=== PATIENT | male | born 1975 | race Caucasian/White ===

== ENCOUNTER → 2019-04-24 12:33 | Outpatient (CLI) | payer OTHER, MEDICAID, SELFPAY | PROVIDERS: PCP Physician Assistant; Visit Provider Physician Assistant | DX: J02.9 Acute pharyngitis, unspecified (principal) | CPT/HCPCS: 87070 ==

== ENCOUNTER 2021-01-19 12:58 | Emergency (ER) | payer OTHER, MEDICAID, SELFPAY ==
[2021-01-19 13:00] VITALS: BP 138/87; PULSE 85; RESP 15; TEMP 36.8; O2SAT 100; BMI 26.3
[2021-01-19 13:21] LABS: Add Manual Diff / Slide Review NO; Basophils Absolute Auto 100 /uL (0-100); Eosinophils Absolute Auto 100 /uL (0-450); Eosinophils Percent Auto 1.3 % (2-4); Hemoglobin 14.7 g/dL (13.5-17.5); Lymphocytes Absolute Auto 1800 /uL (1100-4500); Lymphocytes Percent Auto 23.9 % (25-40); Mean Corpuscular HGB Conc 33.5 % (30-36); Mean Corpuscular Hemoglobin 32.5 PG (26-34); Mean Corpuscular Volume 96.8 fL (80-100); Monocytes Absolute Auto 700 /uL (0-900); Monocytes Percent Auto 10.1 % (3-14); Neutrophils Absolute Auto 4700 /uL (1500-7000); Neutrophils Percent Auto 63.7 % (50-75); Platelet Count 233 X10^3/uL (150-400); Red Blood Cell Count 4.54 X10^6/uL (4.5-5.9); Red Cell Distribution Width 13.2 % (11.6-14.8); White Blood Cell Count 7.4 X10^3/uL (4.5-11.0)
--- NOTE | 2021-01-19 13:22 | ED_ITS ---
HPI - Extremity Problem <Yoanna Gonsalez PA-C - Last Filed: 01/19/21 20:24> General Chief complaint: Extremity Problem,Nontraumatic Stated complaint: feeling funnyjitters,numbness in wrists/forearms Time Seen by Provider: 01/19/21 13:10 Source: patient Mode of arrival: Ambulatory Limitations: no limitations History of Present Illness HPI Narrative: This is a 45-year-old male who works as a [employer] with history of palpitations, abdominal pain, GERD who presents to the emergency department complaining of feeling jittery and off since this morning when he woke up around 6:00 a.m. he states that he just feels funny in his abdomen and chest and shoulder area he has a pins and needles tingly sensation in his wrists on both sides equally, he feels a little like his heart might be beating quickly, and states he just feels ?uncomfortable?--he also notes that he feels like ?I can not get warm?. He states that he drinks most days (at least every other day) in the past week he has been drinking ?more than usual about 4 shots a day he notes that last night he drank more than this because he had family around. He endorses feeling the tingly sensation in his wrist previously at times but has always assumed it was related to ?swinging a hammer?. He also endorses chronic anxiety issues and when asked if he has been under increased stress he says ?always?. He states earlier today he felt a little bit of chest pressure or discomfort in the center of his chest and so he sat down and it resolved within a minute or so. He notes that this morning when he tried to have a bowel mo vement he said it was difficult to do so although this was normal yesterday for him. He endorses chronic stomach issues and has been seen for this he states he takes medicine for ?acid? and this has been ongoing problem for him for the past year it has not been worse today or recently. He denies any shortness of breath, vomiting, fever, diarrhea, abdominal pain, flank pain, current chest pain, one-sided weakness, speech change, or any other symptoms. He states he was in his normal state of health yesterday. MD Complaint: other (Tingling wrists) Onset (ago): hour(s) (7) Pain Consistency: constant and other (Not painful just tingly) Location: other (Equal bilateral) Quality: other (Tingling) Radiation: none Relieving factors: nothing Exacerbating factors: nothing Associated symptoms: other (Feels jittery, anxious, had breif chest pain, feels chilled) Related Data Home Medications Medication Instructions Recorded Confirmed [PROBIOTIC] PO QDAY #0 11/27/17 lansoprazole [Prevacid] 15 mg PO QDAY #0 11/27/17 Previous Rx's Medication Instructions Recorded ondansetron [Zofran ODT] 4 mg SUBLINGUAL Q6HP PRN #10 odt 11/27/17 prednisone 40 mg PO QDAY #10 tab 11/27/17 hydroxyzine HCl 25 mg PO QID PRN #60 tab 01/19/21 Allergies Allergy/AdvReac Type Severity Reaction Status Date / Time No Known Drug Allergies Allergy Verified 01/19/21 13:04 Review of Systems <Yoanna Gonsalez PA-C - Last Filed: 01/19/21 20:24> Review of Systems Narrative: GENERAL: Endorses feeling chilled, denies fatigue, malaise, fever, sweats, endorses clammy palms. HEENT: Denies sinus pain, ear pain, sore throat, difficulty swallowing, dizziness. RESPIRATORY: Denies dyspnea, cough, wheezing, hemoptysis, sputum. CARDIOVASCULAR: Endorses brief episode of chest pain this morning, feels like he is having palpitations, denies orthopnea, edema, GASTROINTESTINAL: Denies nausea, vomiting, abdominal pain, diarrhea, felt a little constipated this morning, denies melena. : Denies dysuria, frequency, incontinence, hematuria, urinary retention. MUSCULOSKELETAL: denies weakness, joint pain, or bony pain, endorses tingling sensation of his wrists and proximal hand on the pinky side bilaterally SKIN: Denies rash, skin lesions, or other NEUROLOGIC: Denies weakness, headache, numbness, change in speech, confusion, seizures, incoordination. PSYCHIATRIC: No concerning psychosocial issues. 12 point review of systems is negative except for those stated above ROS Unobtainable: All systems reviewed & are unremarkable except as noted in HPI and below Patient History <Yoanna Gonsalez PA-C - Last Filed: 01/19/21 20:24> Social History Smoking Status: Current every day smoker Smoking Status: Current every day smoker alcohol intake frequency: 3 or more drinks per day Substance Use Type: marijuana Exam <Yoanna Gonsalez PA-C - Last Filed: 01/19/21 20:24> Narrative Exam Narrative: GENERAL: 45 year old patient appears stated age. Well-nourished, well-developed patient, in mild distress, anxious appearing, consistently moving his feet and legs slightly. HEAD: Atraumatic. Normocephalic. EYES: Pupils equal round and reactive 3mm. Extraocular motions intact. No scleral icterus. No injection or drainage. ENT: Nose without bleeding, purulent drainage. Throat without erythema, tonsillar hypertrophy or exudate. Airway patent. Uvula midline. NECK: Trachea midline. Non tender CARDIOVASCULAR: Regular rate and rhythm without murmurs, gallops, or rubs. RESPIRATORY: Clear to auscultation. Breath sounds equal bilaterally. No wheezes, rales, or rhonchi. GASTROINTESTINAL: Abdomen soft, non-tender, nondistended. EXTREMITIES: No edema or joint tenderness. Range of motion and strength intact bilaterally equal 5/5. BACK: Nontender without deformity or crepitance. No flank tenderness. NEURO: AOx3. Cranial nerves II-XII intact. Sensation intact. Negative arm drift, leg drift SKIN: No rash or erythema of visible areas Initial Vital Signs Initial Vital Signs: Vital Signs Temperature 98.3 F 01/19/21 13:00 Pulse Rate 85 01/19/21 13:00 Respiratory Rate 15 01/19/21 13:00 Blood Pressure 138/87 01/19/21 13:00 Pulse Oximetry 100 01/19/21 13:00 <Gaston Ramsey DO - Last Filed: 01/23/21 18:02> Initial Vital Signs Initial Vital Signs: Vital Signs Temperature 98.3 F 01/19/21 13:00 Pulse Rate 85 01/19/21 13:00 Respiratory Rate 15 01/19/21 13:00 Blood Pressure 138/87 01/19/21 13:00 Pulse Oximetry 100 01/19/21 13:00 Scores <Yoanna Gonsalez PA-C - Last Filed: 03/11/21 20:24> GCS Jeffrey coma scale eye opening: Spontaneous Amber coma scale verbal response: Orientated Jeffrey coma scale motor response: Obey commands Jeffrey coma scale total score: 15 NIH Stroke Scale Level of Conciousness: Alert, keenly responsive Ask month/age: Answers both questions correctly. Open/close eyes, close hand: Performs both tasks correctly Best gaze horizontal: Normal Visual archibald: No visual loss Facial palsy: Normal symetrical movement Left arm drift: No drift for full 10 sec Right arm drift: No drift for full 10 sec Left leg drift: No drift for full 5 sec Right leg drift: No drift for full 5 sec Limb ataxia: Absent Sensory on face/arms/legs: Normal, no sensory loss Best language: No aphasia, normal Dysarthria: Normal Extinction or inattention: No abnormality Total NIH Stroke scale score: 0 Course <Yoanna Gonsalez PA-C - Last Filed: 01/19/21 20:24> Course Course Narrative: Slightly uncomfortable appearing 45-year-old with unremarkable vitals. EKG is obtained and is unremarkable. I have some concern for possible withdrawal from alcohol although his reported recent history would not support this. I think anxiety is also likely in this patient. Also checking cardiac enzymes and TSH. 13:38 Patient did now advise RN that he has previously had withdrawals from alcohol and that he has previously had to have treatment for this. I have asked that we complete a CIWA score on him. 13:41 CIWA was 5. Orders Ordered: Discontinued Medications Sodium Chloride (Normal Saline 0.9%) 1,000 mls @ 1,000 mls/hr IV BOLUS ONE Stop: 01/19/21 14:09 Last Infusion: 01/19/21 14:50 Dose: 0 mls/hr Documented by: Admin: 01/19/21 13:44 Dose: 1,000 mls/hr Documented by: JOHNSON Lorazepam (Lorazepam 2 Mg/Ml Inj) 1 mg IV NOW ONE Stop: 01/19/21 14:58 Last Admin: 01/19/21 15:07 Dose: 1 mg Documented by: AL Ondansetron HCl (Ondansetron 4 Mg/2 Ml Inj) 4 mg IV NOW ONE Stop: 01/19/21 13:11 Last Admin: 01/19/21 13:43 Dose: 4 mg Documented by: JOHNSON Thiamine HCl (Thiamine 200 Mg/2 Ml Vial) 100 mg IV NOW ONE Stop: 01/19/21 14:56 Last Admin: 01/19/21 15:07 Dose: 100 mg Documented by: AL Vital Signs Vital signs: Vital Signs - 8 hr 01/19/21 13:00 01/19/21 16:06 Temperature 98.3 F Pulse Rate 85 85 Respiratory Rate 15 14 Blood Pressure 138/87 137/77 Pulse Oximetry 100 98 <Gaston Ramsey DO - Last Filed: 01/23/21 18:02> Orders Ordered: Discontinued Medications Sodium Chloride (Normal Saline 0.9%) 1,000 mls @ 1,000 mls/hr IV BOLUS ONE Stop: 01/19/21 14:09 Last Infusion: 01/19/21 14:50 Dose: 0 mls/hr Documented by: Admin: 01/19/21 13:44 Dose: 1,000 mls/hr Documented by: JOHNSON Lorazepam (Lorazepam 2 Mg/Ml Inj) 1 mg IV NOW ONE Stop: 01/19/21 14:58 Last Admin: 01/19/21 15:07 Dose: 1 mg Documented by: AL Ondansetron HCl (Ondansetron 4 Mg/2 Ml Inj) 4 mg IV NOW ONE Stop: 01/19/21 13:11 Last Admin: 01/19/21 13:43 Dose: 4 mg Documented by: JOHNSON Thiamine HCl (Thiamine 200 Mg/2 Ml Vial) 100 mg IV NOW ONE Stop: 01/19/21 14:56 Last Admin: 01/19/21 15:07 Dose: 100 mg Documented by: AL Vital Signs Vital signs: Vital Signs - 8 hr 01/19/21 13:00 01/19/21 16:06 Temperature 98.3 F Pulse Rate 85 85 Respiratory Rate 15 14 Blood Pressure 138/87 137/77 Pulse Oximetry 100 98 MDM - Extremity (Nontraumatic) <Yoanna Gonsalez PA-C - Last Filed: 01/19/21 20:24> Differential Diagnosis Differential diagnosis: Likely other (Alcohol withdrawal, anxiety, vitamin deficiency, carpal tunnel) Medical Records Attestation: I reviewed the patient's medical records. Lab Data Attestation: I reviewed the patient's lab results. Result diagrams: 01/19/21 13:07 01/19/21 13:07 Labs: Lab Results 01/19/21 01/19/21 01/19/21 Range/Units 13:07 13:07 13:07 WBC 7.4 (4.5-11.0) X10^3/uL RBC 4.54 (4.5-5.9) X10^6/uL Hgb 14.7 (13.5-17.5) g/dL Hct 44.0 (41-53) % MCV 96.8 (80-100) fL MCH 32.5 (26-34) PG MCHC 33.5 (30-36) % RDW 13.2 (11.6-14.8) % Plt Count 233 (150-400) X10^3/uL Neut % (Auto) 63.7 (50-75) % Lymph % (Auto) 23.9 L (25-40) % [place] % (Auto) 10.1 (3-14) % Eos % (Auto) 1.3 L (2-4) % Baso % (Auto) 1.0 (0-2) % Neut # (Auto) 4700 (5041-5028) /uL Lymph # (Auto) 1800 (0262-5762) /uL [place] # (Auto) 700 (0-900) /uL Eos # (Auto) 100 (0-450) /uL Baso # (Auto) 100 (0-100) /uL Sodium 138 (137-145) mmol/L Potassium 4.0 (3.4-5.1) mmol/L Chloride 105 (98-107) mmol/L Carbon Dioxide 26 (22-32) mmol/L BUN 15 (9-20) mg/dL Creatinine 0.92 (0.66-1.25) mg/dL Estimated GFR > 60.0 (>60) mL/min BUN/Creatinine Ratio 16.3 (6-22) Glucose 112 H (70-100) mg/dL Calcium 9.5 (8.4-10.2) mg/dL Magnesium (1.6-2.3) mg/dL Total Bilirubin 1.1 (0.2-1.3) mg/dL AST 40 (17-59) IU/L ALT 44 (<50) IU/L Alkaline Phosphatase 94 (38-126) U/L Total Creatine Kinase 372 H (55-170) U/L CK-MB (CK-2) 5.45 H (<2.37) ng/mL CK-MB (CK-2) Rel Index 1.5 (1.5-5.0) % Troponin I < 0.012 (0.01-0.034) ng/mL Total Protein 8.2 (6.3-8.2) g/dL Albumin 4.7 (3.5-5.0) g/dL Globulin 3.5 (1.7-4.1) g/dL Albumin/Globulin Ratio 1.3 (1.0-2.8) TSH 0.926 (0.47-4.68) uIU/mL Ethyl Alcohol ( - 10) mg/dL SARS-CoV-2 (PCR) (Negative) 01/19/21 01/19/21 01/19/21 Range/Units 13:07 13:07 13:42 WBC (4.5-11.0) X10^3/uL RBC (4.5-5.9) X10^6/uL Hgb (13.5-17.5) g/dL Hct (41-53) % MCV (80-100) fL MCH (26-34) PG MCHC (30-36) % RDW (11.6-14.8) % Plt Count (150-400) X10^3/uL Neut % (Auto) (50-75) % Lymph % (Auto) (25-40) % [place] % (Auto) (3-14) % Eos % (Auto) (2-4) % Baso % (Auto) (0-2) % Neut # (Auto) (6750-6661) /uL Lymph # (Auto) (2721-2318) /uL [place] # (Auto) (0-900) /uL Eos # (Auto) (0-450) /uL Baso # (Auto) (0-100) /uL Sodium (137-145) mmol/L Potassium (3.4-5.1) mmol/L Chloride (98-107) mmol/L Carbon Dioxide (22-32) mmol/L BUN (9-20) mg/dL Creatinine (0.66-1.25) mg/dL Estimated GFR (>60) mL/min BUN/Creatinine Ratio (6-22) Glucose (70-100) mg/dL Calcium (8.4-10.2) mg/dL Magnesium 1.9 (1.6-2.3) mg/dL Total Bilirubin (0.2-1.3) mg/dL AST (17-59) IU/L ALT (<50) IU/L Alkaline Phosphatase (38-126) U/L Total Creatine Kinase (55-170) U/L CK-MB (CK-2) (<2.37) ng/mL CK-MB (CK-2) Rel Index (1.5-5.0) % Troponin I (0.01-0.034) ng/mL Total Protein (6.3-8.2) g/dL Albumin (3.5-5.0) g/dL Globulin (1.7-4.1) g/dL Albumin/Globulin Ratio (1.0-2.8) TSH (0.47-4.68) uIU/mL Ethyl Alcohol < 10 ( - 10) mg/dL SARS-CoV-2 (PCR) Negative (Negative) ECG Data Attestation EKG: I personally reviewed and interpreted this ECG as follows: Interpretation: NSR rate 75 NM 156 QRS 102 QT 384 P axis 68 R axis 30 T [place] 54 Inverted T in V1 otherwse unremarkable MDM Narrative Medical decision making narrative: Anxious appearing 45-year-old presents with concern for feeling jittery with a weird sensation in his chest and abdomen and having and numbness of both of his wrists. He endorses historically having the same wrist feeling before multiple times. He also endorses drinking more than usual the past week particularly last night. He has an unremarkable neuro exam, EKG. Labs returned unremarkable including TSH and troponin. Troponin was not rechecked given the duration of his symptoms is greater than 6 hours and he had only 1 brief episode of chest discomfort early this morning. Etiology of his tingling sensation in his bilateral wrists is unclear. I have low suspicion for TIA or CVA. He was feeling better after he received fluids and Zofran and Ativan, he was also given thiamine. And he was discharged with hydroxyzine for anxiety as he did endorse chronic issues with anxiety and not currently taking any medications for this. His symptoms are also consistent with anxiety. He was also advised to follow-up with his primary care provider and consider discussing other options for anxiety medicine as well as evaluating for possible vitamin deficiency. Given CIWA of 5 low suspicion for acute alcohol withdrawal. Return precautions provided, all questions answered, follow-up plan discussed <Gaston Ramsey DO - Last Filed: 01/23/21 18:02> Lab Data Labs: Lab Results 01/19/21 01/19/21 01/19/21 Range/Units 13:07 13:07 13:07 WBC 7.4 (4.5-11.0) X10^3/uL RBC 4.54 (4.5-5.9) X10^6/uL Hgb 14.7 (13.5-17.5) g/dL Hct 44.0 (41-53) % MCV 96.8 (80-100) fL MCH 32.5 (26-34) PG MCHC 33.5 (30-36) % RDW 13.2 (11.6-14.8) % Plt Count 233 (150-400) X10^3/uL Neut % (Auto) 63.7 (50-75) % Lymph % (Auto) 23.9 L (25-40) % [place] % (Auto) 10.1 (3-14) % Eos % (Auto) 1.3 L (2-4) % Baso % (Auto) 1.0 (0-2) % Neut # (Auto) 4700 (8630-4631) /uL Lymph # (Auto) 1800 (6964-6890) /uL [place] # (Auto) 700 (0-900) /uL Eos # (Auto) 100 (0-450) /uL Baso # (Auto) 100 (0-100) /uL Sodium 138 (137-145) mmol/L Potassium 4.0 (3.4-5.1) mmol/L Chloride 105 (98-107) mmol/L Carbon Dioxide 26 (22-32) mmol/L BUN 15 (9-20) mg/dL Creatinine 0.92 (0.66-1.25) mg/dL Estimated GFR > 60.0 (>60) mL/min BUN/Creatinine Ratio 16.3 (6-22) Glucose 112 H (70-100) mg/dL Calcium 9.5 (8.4-10.2) mg/dL Magnesium (1.6-2.3) mg/dL Total Bilirubin 1.1 (0.2-1.3) mg/dL AST 40 (17-59) IU/L ALT 44 (<50) IU/L Alkaline Phosphatase 94 (38-126) U/L Total Creatine Kinase 372 H (55-170) U/L CK-MB (CK-2) 5.45 H (<2.37) ng/mL CK-MB (CK-2) Rel Index 1.5 (1.5-5.0) % Troponin I < 0.012 (0.01-0.034) ng/mL Total Protein 8.2 (6.3-8.2) g/dL Albumin 4.7 (3.5-5.0) g/dL Globulin 3.5 (1.7-4.1) g/dL Albumin/Globulin Ratio 1.3 (1.0-2.8) TSH 0.926 (0.47-4.68) uIU/mL Ethyl Alcohol ( - 10) mg/dL SARS-CoV-2 (PCR) (Negative) 01/19/21 01/19/21 01/19/21 Range/Units 13:07 13:07 13:42 WBC (4.5-11.0) X10^3/uL RBC (4.5-5.9) X10^6/uL Hgb (13.5-17.5) g/dL Hct (41-53) % MCV (80-100) fL MCH (26-34) PG MCHC (30-36) % RDW (11.6-14.8) % Plt Count (150-400) X10^3/uL Neut % (Auto) (50-75) % Lymph % (Auto) (25-40) % [place] % (Auto) (3-14) % Eos % (Auto) (2-4) % Baso % (Auto) (0-2) % Neut # (Auto) (8049-7259) /uL Lymph # (Auto) (9412-8731) /uL [place] # (Auto) (0-900) /uL Eos # (Auto) (0-450) /uL Baso # (Auto) (0-100) /uL Sodium (137-145) mmol/L Potassium (3.4-5.1) mmol/L Chloride (98-107) mmol/L Carbon Dioxide (22-32) mmol/L BUN (9-20) mg/dL Creatinine (0.66-1.25) mg/dL Estimated GFR (>60) mL/min BUN/Creatinine Ratio (6-22) Glucose (70-100) mg/dL Calcium (8.4-10.2) mg/dL Magnesium 1.9 (1.6-2.3) mg/dL Total Bilirubin (0.2-1.3) mg/dL AST (17-59) IU/L ALT (<50) IU/L Alkaline Phosphatase (38-126) U/L Total Creatine Kinase (55-170) U/L CK-MB (CK-2) (<2.37) ng/mL CK-MB (CK-2) Rel Index (1.5-5.0) % Troponin I (0.01-0.034) ng/mL Total Protein (6.3-8.2) g/dL Albumin (3.5-5.0) g/dL Globulin (1.7-4.1) g/dL Albumin/Globulin Ratio (1.0-2.8) TSH (0.47-4.68) uIU/mL Ethyl Alcohol < 10 ( - 10) mg/dL SARS-CoV-2 (PCR) Negative (Negative) Discharge Plan Departure Patient Disposition: Home Clinical Impression: Tingling of both upper extremities, Anxiety Activity Restrictions/Additional Instructions: Thank you for letting us be part of your care today in the emergency department. There are number of different things that could potentially cause the symptoms that you had today. We did evaluate you with labs and EKG, these were looking good today. Occasionally numbness and tingling in the extremities can be caused by vitamin deficiencies we did give you some vitamin B1 (thiamine) today. 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 If your having an anxiety attack it can cause a tingling sensation in your extremities due to changes in your breathing pattern. We did check on your cardiac labs today and this was looking okay. Your electrolytes also looks good. I do not have a clear cause for your symptoms. I do not think it is likely that you have carpal tunnel although the tingling may be related to chronic use of your hands in your job. You could consider taking it B vitamin supplements if you like or when you have your follow-up appointment with primary care talk to them about getting tested for specific vitamin deficiencies if you would like. I am going to prescribe some anti anxiety medic ine for you which you should not take before driving or operating any equipment. I would also talk to her primary care provider about anxiety. There is no evidence of an emergent or life threatening illness at this time, but follow up with your doctor in 1-2 days is recommended nonetheless to continue to rule out serious underlying causes of your symptoms. Please call the office for an appointment. Please return to the Emergency Department for any worsening or persistent symptoms. Please take medications as directed. Prescriptions: New hydroxyzine HCl 25 mg tablet 25 mg PO QID PRN (Reason: anxiety) Qty: 60 RF: 0 No Action lansoprazole [Prevacid] 15 MG capsule,delayed release(DR/EC) 15 mg PO QDAY Qty: 0 RF: 0 [PROBIOTIC] PO QDAY Qty: 0 RF: 0 prednisone 20 MG tablet 40 mg PO QDAY Qty: 10 RF: 0 ondansetron [Zofran ODT] 4 MG tablet,disintegrating 4 mg Sublingual Q6HP PRNQty: 10 RF: 0 Referrals: Jeff Weber ND [Primary Care Provider] - Stand Alone Forms: Work Release Note <Gaston Ramsey DO - Last Filed: 01/23/21 18:02> Cosign ED Attending Gemaature Attestation: I was immediately available in the department for consultation. This documentation has been reviewed and I agree with assessment and plan. Supervised by Gaston Ramsey DO
[2021-01-19 13:37] LABS: Alanine Aminotransferase 44 IU/L (<50); Albumin 4.7 g/dL (3.5-5.0); Albumin Globulin Ratio 1.3 (1.0-2.8); Alkaline Phosphatase 94 U/L (38-126); Aspartate Aminotransferase 40 IU/L (17-59); BUN Creatinine Ratio 16.3 (6-22); Bilirubin Total 1.1 mg/dL (0.2-1.3); Blood Urea Nitrogen 15 mg/dL (9-20); Calcium 9.5 mg/dL (8.4-10.2); Carbon Dioxide 26 mmol/L (22-32); Chloride 105 mmol/L (98-107); Creatine Kinase 372 U/L (55-170); Estimated Glomerular Filt Rate > 60.0 mL/min (>60); Globulin 3.5 g/dL (1.7-4.1); Glucose 112 mg/dL (70-100); HEMOLYSIS < 15 (0-50); Sodium 138 mmol/L (137-145); Total Protein 8.2 g/dL (6.3-8.2)
[2021-01-19 13:42] LABS: Ethanol (ETOH) < 10 mg/dL
[2021-01-19] MEDS: ONDANSETRON 4 MG/2 ML INJ IV (13:43)
[2021-01-19] MEDS: SODIUM CHLORIDE 0.9% 1,000 ML 1000 ML IV (13:44)
[2021-01-19 13:49] LABS: Troponin I < 0.012 ng/mL (0.01-0.034)
[2021-01-19 13:58] LABS: Magnesium 1.9 mg/dL (1.6-2.3)
[2021-01-19 14:01] LABS: COVID19 -Nasal RAPID Negative (Negative)
--- NOTE | 2021-01-19 14:01 | PC.NURSE ---
patient states that he doesn't feel well. Numbness and tingling in his hands bilaterally. No other neurological deficits. complaints of stomach pain that has since resolved.
[2021-01-19 14:04] LABS: CKMB % Relative Index 1.5 % (1.5-5.0); Creatine Kinase MB 5.45 ng/mL (<2.37)
[2021-01-19 14:30] LABS: Thyroid Stimulating Hormone 0.926 uIU/mL (0.47-4.68)
[2021-01-19] MEDS: THIAMINE 200 MG/2 ML VIAL 100 MG IV (15:07)
[2021-01-19] MEDS: LORazepam 2 MG/ML INJ 1 MG IV (15:07)
[2021-01-19 16:06] VITALS: BP 137/77; PULSE 85; RESP 14; O2SAT 98
== END 2021-01-19 16:09 | disposition home or self-care (01) ==
PROVIDERS: Emergency Provider Student in an Organized Health Care Education/Training Program; PCP Naprapath
DX: R20.2 Paresthesia of skin (principal); F41.9 Anxiety disorder, unspecified; Z20.822 Contact with and (suspected) exposure to COVID-19
CPT/HCPCS: 36415; 80053; 80320; 82550; 82553; 83735; 84443; 84484; 85025; 87635; 93005; 96361; 96374; 96375; 99282; 99284; C9803; J2060; J2405

== ENCOUNTER 2021-09-04 12:32 | Emergency (ER) | payer OTHER, MEDICAID, SELFPAY ==
[2021-09-04 13:19] VITALS: BP 132/72; PULSE 78; RESP 16; TEMP 36.6; O2SAT 99; BMI 25.4
--- NOTE | 2021-09-04 15:03 | PC.NURSE ---
Was called from the waiting room x 2 without answer
== END 2021-09-04 15:00 | disposition left against medical advice (07) ==
PROVIDERS: Emergency Provider Emergency Medicine
DX: R07.9 Chest pain, unspecified (principal)
CPT/HCPCS: 93005; 99282

== ENCOUNTER 2023-06-27 20:08 | Emergency (ER) | payer OTHER, MEDICAID, SELFPAY ==
[2023-06-27 20:30] VITALS: BP 128/79; PULSE 88; RESP 18; TEMP 37.1; O2SAT 97; BMI 26.3
[2023-06-27 21:08] LABS: COVID19 -Nasal RAPID Negative (Negative)
--- NOTE | 2023-06-27 22:31 | DI.RAD.S_ITS ---
PROCEDURE: XR CHEST 1V INDICATIONS: eval for PNA TECHNIQUE: One view of the chest was acquired. COMPARISON: [facility], CR, ABDOMEN ACUTE SERIES, 11/25/2017, 0:02. FINDINGS: Surgical changes and devices: None. Lungs and pleura: Lungs are clear. No pleural effusions or pneumothorax. Mediastinum: Mediastinal contours appear normal. Heart size is normal. Bones and chest wall: No suspicious bony lesions. Overlying soft tissues appear unremarkable. IMPRESSION: 1. No acute cardiopulmonary disease. Dictated by: Ananda Romano M.D. on 06/28/2023 at 0:05 Approved by: Ananda Romano M.D. on 06/28/2023 at 0:05
--- NOTE | 2023-06-27 22:31 | ED.GENADULT ---
HPI - General Adult General Chief complaint: Upper Respiratory Symptoms Stated complaint: night sweats, unable to sleep Time Seen by Provider: 06/27/23 22:10 Source: patient Mode of arrival: Ambulatory Limitations: no limitations History of Present Illness HPI narrative: Patient is a 48-year-old male who is here for evaluation of 3-4 days what he states his sweating at night. He does not think he is having a temperature but has not specifically checked it. He states the last time that this has happened was when he had COVID. He is not having any chest pain or shortness of breath or sinus congestion or abdominal pain or nausea vomiting or diarrhea. No skin rashes. No recent travel. He states he is not having the symptoms during the day. He also states he is had weight loss over the past couple weeks/months as well. Related Data Home Medications Medication Instructions Recorded Confirmed sildenafil PO 11/13/22 02/27/23 Previous Rx's Medication Instructions Recorded tadalafil 5 mg tablet (Cialis) 5 mg PO DAILY #90 tabs 11/13/22 Allergies Allergy/AdvReac Type Severity Reaction Status Date / Time No Known Drug Allergies Allergy Verified 02/27/23 10:19 Review of Systems Review of Systems ROS Unobtainable: All systems reviewed & are unremarkable except as noted in HPI and below Patient History Medical History Erectile dysfunction History of impotence Lower urinary tract symptoms (LUTS) Surgical History Hx of circumcision Family History Grandfather Cancer Hearing impairment Mother Diabetes mellitus Social History marital status: number of children: 1 Smoking Status: Former smoker alcohol intake: current caffeine: Yes Type(s) of exercise: independent ambulation and other frequency: daily Smoking Status: Former smoker alcohol intake frequency: 3 or more drinks per day Substance Use Type: marijuana Exam Initial Vital Signs Initial Vital Signs: Vital Signs Temperature 98.7 F 06/27/23 20:30 Pulse Rate 88 06/27/23 20:30 Respiratory Rate 18 06/27/23 20:30 Blood Pressure 128/79 06/27/23 20:30 Pulse Oximetry 97 06/27/23 20:30 Oxygen Delivery Method Room Air 06/27/23 20:30 Const General: cooperative, comfortable and No ill appearing HENPA Head: normal to inspection and normocephalic Resp Effort & Inspection: normal respiratory effort Auscultation: clear to auscultation bilaterally Cardio Rate: regular rate Rhythm: regular rhythm Skin General: no rashes or lesions noted Neuro General: patient alert, patient awake, patient oriented x3 and moves all extremities Speech: speech normal Extrem General: normal to inspection and capillary refill normal Course Orders Ordered: ED Orders 06/27/23 20:45 COVID19 -Nasal RAPID Stat 06/27/23 22:31 XR chest 1V Stat 06/27/23 22:55 Basic Metabolic Panel Stat Complete Blood Count AUTO DIFF Stat Vital Signs Vital signs: Vital Signs - 8 hr 06/27/23 20:30 Temperature 98.7 F Pulse Rate 88 Respiratory Rate 18 Blood Pressure 128/79 Pulse Oximetry 97 Oxygen Delivery Method Room Air Medical Decision Making Lab Data Lab results reviewed: Yes I reviewed the patient's lab results. 06/27/23 22:55 06/27/23 22:55 Labs: Lab Results 06/27/23 06/27/23 06/27/23 Range/Units 20:45 22:55 22:55 WBC 6.5 (4.5-11.0) X10^3/uL RBC 4.24 L (4.5-5.9) X10^6/uL Hgb 14.2 (13.5-17.5) g/dL Hct 40.4 L (41-53) % MCV 95.4 (80-100) fL MCH 33.4 (26-34) PG MCHC 35.0 (30-36) % RDW 13.1 (11.6-14.8) % Plt Count 210 (150-400) X10^3/uL Neut % (Auto) 57.8 (50-75) % Lymph % (Auto) 22.8 L (25-40) % Winn % (Auto) 12.6 (3-14) % Eos % (Auto) 4.8 H (2-4) % Baso % (Auto) 2.0 (0-2) % Neut # (Auto) 3800 (8384-3094) /uL Lymph # (Auto) 1500 (4920-2249) /uL Winn # (Auto) 800 (0-900) /uL Eos # (Auto) 300 (0-450) /uL Baso # (Auto) 100 (0-100) /uL Sodium 136 L (137-145) mmol/L Potassium 4.1 (3.4-5.1) mmol/L Chloride 104 (98-107) mmol/L Carbon Dioxide 25 (22-32) mmol/L BUN 12 (9-20) mg/dL Creatinine 0.91 (0.66-1.25) mg/dL Estimated GFR > 60 (>60) mL/min BUN/Creatinine Ratio 13.2 (6-22) Glucose 102 H (70-100) mg/dL Calcium 8.9 (8.4-10.2) mg/dL SARS-CoV-2 (PCR) Negative (Negative) Imaging Data Chest x-ray: Radiologist's Impression: PROCEDURE:? XR CHEST 1V ? INDICATIONS:? eval for PNA ? TECHNIQUE:? One view of the chest was acquired.? ? COMPARISON:? [facility], CR, ABDOMEN ACUTE SERIES, 11/25/2017, 0:02. ? FINDINGS:? ? Surgical changes and devices:? None.? ? Lungs and pleura:? Lungs are clear.? No pleural effusions or pneumothorax.? ? Mediastinum:? Mediastinal contours appear normal.? Heart size is normal.? ? Bones and chest wall:? No suspicious bony lesions.? Overlying soft tissues appear unremarkable.? ? IMPRESSION:? ? 1.? No acute cardiopulmonary disease. MDM Narrative Medical decision making narrative: Patient is nontoxic. Afebrile. Chest x-ray is unremarkable. Labs unremarkable. Patient has not had any recent travel. His COVID is negative. No indication for antibiotics. He is no other overt signs of any malignancies. Will have the patient actually take his temperature at night when he feels like he is having sweating to see if he is actually having fevers. He can take Tylenol to try to help regulate his body temperature. His sweating could very well be because of environmental issues as it has been hot in the local area recently. Will have him contact his primary doctor for follow-up. He was given return precautions. He expressed understanding and agreement. Discharge Plan Departure Patient Disposition: Home Clinical Impression: Night sweats Clinical Impression: (Ruled Out): Abdominal discomfort Activity Restrictions/Additional Instructions: I recommend that you take your temperature this evening if the symptoms reoccur. You can take Tylenol as needed like we discussed. Contact your primary doctor for a follow-up. Return to the emergency department for new symptoms. Prescriptions: No Action sildenafil PO tadalafil [Cialis] 5 mg tablet 5 mg PO DAILY Qty: 90 3RF Referrals: Elyse Alba ND [Primary Care Provider] - Stand Alone Forms: Patient Portal/API
[2023-06-27 23:10] LABS: Add Manual Diff / Slide Review NO; Basophils Absolute Auto 100 /uL (0-100); Eosinophils Absolute Auto 300 /uL (0-450); Eosinophils Percent Auto 4.8 % (2-4); Hematocrit 40.4 % (41-53); Hemoglobin 14.2 g/dL (13.5-17.5); Lymphocytes Absolute Auto 1500 /uL (1100-4500); Lymphocytes Percent Auto 22.8 % (25-40); Mean Corpuscular Hemoglobin 33.4 PG (26-34); Mean Corpuscular Volume 95.4 fL (80-100); Monocytes Absolute Auto 800 /uL (0-900); Monocytes Percent Auto 12.6 % (3-14); Neutrophils Absolute Auto 3800 /uL (1500-7000); Neutrophils Percent Auto 57.8 % (50-75); Platelet Count 210 X10^3/uL (150-400); Red Blood Cell Count 4.24 X10^6/uL (4.5-5.9); Red Cell Distribution Width 13.1 % (11.6-14.8); White Blood Cell Count 6.5 X10^3/uL (4.5-11.0)
[2023-06-27 23:23] LABS: BUN Creatinine Ratio 13.2 (6-22); Blood Urea Nitrogen 12 mg/dL (9-20); Calcium 8.9 mg/dL (8.4-10.2); Carbon Dioxide 25 mmol/L (22-32); Chloride 104 mmol/L (98-107); Estimated Glomerular Filt Rate > 60 mL/min (>60); Glucose 102 mg/dL (70-100); HEMOLYSIS < 15 (0-50); Potassium 4.1 mmol/L (3.4-5.1); Sodium 136 mmol/L (137-145)
== END 2023-06-28 00:43 | disposition home or self-care (01) ==
PROVIDERS: Emergency Provider Emergency Medicine; PCP Naturopath
DX: R61 Generalized hyperhidrosis (principal); R10.9 Unspecified abdominal pain; Z20.822 Contact with and (suspected) exposure to COVID-19
CPT/HCPCS: 36415; 71045; 80048; 85025; 87635; 99283; 99284; C9803

== ENCOUNTER 2024-05-07 03:46 | Emergency (ER) | payer OTHER, MEDICAID, SELFPAY ==
[2024-05-07] VITALS (9 sets, daily range): BP systolic 116–131; BP diastolic 72–88; PULSE 62–75; RESP 18; TEMP 36.8; O2SAT 96–98; BMI 28.2
--- NOTE | 2024-05-07 03:57 | ED.ABDPAIN ---
HPI - Abdominal Pain General Chief Complaint: Abdominal Pain Stated Complaint: abd pain Time Seen by Provider: 05/07/24 03:54 History of Present Illness HPI narrative: 48-year-old male with history of polysubstance abuse, last drink of alcohol fall 2022, history of remote methamphetamine use, prior abdominal pain evaluations, upper and lower endoscopy studies negative in the past, no gallbladder disease known, no stomach ulcers known, complains of upper abdominal pain for the last couple of days, similar to prior abdominal pain. Had small amount of bowel movement yesterday, did not change the abdominal pain, no black or red stools. No mucoid stools. No history of Crohn's disease or inflammatory bowel disease known. No abdominal pelvic surgeries. He denies trauma, injury, new activities. No change in diet. No new medications. He denies use of aspirin, ibuprofen, naproxen. He has not tried any treatment for this recent discomfort. No trial of antacids advised or taken empirically. He denies painful urination, frequency of urination, dark/red color of urine. He denies flank and back pain. Related Data Home Medications Medication Instructions Recorded Confirmed sildenafil PO 11/13/22 02/27/23 Previous Rx's Medication Instructions Recorded tadalafil 5 mg tablet (Cialis) 5 mg PO DAILY #90 tabs 11/13/22 omeprazole 20 mg capsule,delayed 20 mg PO DAILY upper abdominal 05/07/24 release pain 30 days #30 caps Allergies Allergy/AdvReac Type Severity Reaction Status Date / Time No Known Drug Allergies Allergy Verified 02/27/23 10:19 Review of Systems Review of Systems Narrative: As per HPI Patient History Medical History Erectile dysfunction History of impotence Lower urinary tract symptoms (LUTS) Surgical History Hx of circumcision Family History Grandfather Cancer Hearing impairment Mother Diabetes mellitus Social History marital status: number of children: 1 Smoking Status: Former smoker alcohol intake: current caffeine: Yes Type(s) of exercise: independent ambulation and other frequency: daily Smoking Status: Former smoker alcohol intake frequency: 3 or more drinks per day Substance Use Type: marijuana Exam Narrative Exam Narrative: GENERAL: Well-developed patient, in mild distress. HEAD: Atraumatic. Normocephalic. EYES: Pupils equal round and reactive. Extraocular motions intact. No scleral icterus. No injection or drainage. ENT: Nose without bleeding, purulent drainage. Throat without erythema, tonsillar hypertrophy or exudate. Airway patent. NECK: Trachea midline. Non tender CARDIOVASCULAR: Regular rate and rhythm without murmurs, gallops, or rubs. RESPIRATORY: Clear to auscultation. Breath sounds equal bilaterally. No wheezes, rales, or rhonchi. GASTROINTESTINAL: Abdomen soft, mild tenderness epigastrium, no right upper quadrant tenderness, no left upper quadrant tenderness, no lower abdominal quadrants area discomfort, no periumbilical tenderness or mass. Nondistended, no obvious fluid wave EXTREMITIES: No edema or joint tenderness. BACK: Nontender without deformity or crepitance. No flank tenderness. NEURO: AOx3. SKIN: No rash or erythema of visible areas Initial Vital Signs Initial Vital Signs: Vital Signs Pulse Rate 66 05/07/24 04:03 Pulse Oximetry 96 05/07/24 04:03 Course Orders Ordered: Discontinued Medications Famotidine (Famotidine 20 Mg/2 Ml Vial) 20 mg IV NOW DIOMEDES Pantoprazole Sodium (Pantoprazole 40 Mg Vial) 40 mg IV NOW ONE Stop: 05/07/24 06:16 Last Admin: 05/07/24 06:26 Dose: 40 mg Documented By: HNG Vital Signs Vital signs: Vital Signs - 8 hr 05/07/24 04:03 05/07/24 04:04 05/07/24 04:30 Temperature 98.2 F Pulse Rate 66 67 65 Respiratory Rate 18 Blood Pressure 131/88 Pulse Oximetry 96 97 97 Oxygen Delivery Method Room Air 05/07/24 05:30 05/07/24 05:49 05/07/24 05:50 Temperature Pulse Rate 62 71 Respiratory Rate Blood Pressure 122/74 Pulse Oximetry 96 97 Oxygen Delivery Method 05/07/24 05:50 05/07/24 06:00 05/07/24 06:01 Temperature Pulse Rate 75 68 Respiratory Rate Blood Pressure 124/72 Pulse Oximetry 97 97 Oxygen Delivery Method 05/07/24 06:01 Temperature Pulse Rate 67 Respiratory Rate Blood Pressure Pulse Oximetry 98 Oxygen Delivery Method [facility] - Abdominal Pain Lab Data 05/07/24 04:25 05/07/24 04:25 Labs: Lab Results 05/07/24 Range/Units 04:25 WBC 6.0 (4.5-11.0) X10^3/uL RBC 4.66 (4.5-5.9) X10^6/uL Hgb 15.0 (13.5-17.5) g/dL Hct 43.9 (41-53) % MCV 94.2 (80-100) fL MCH 32.2 (26-34) PG MCHC 34.2 (30-36) % RDW 13.6 (11.6-14.8) % Plt Count 217 (150-400) X10^3/uL Neut % (Auto) 39.7 L (50-75) % Lymph % (Auto) 40.2 H (25-40) % [place]enson % (Auto) 13.2 (3-14) % Eos % (Auto) 6.0 H (2-4) % Baso % (Auto) 0.9 (0-2) % Neut # (Auto) 2400 (8788-4946) /uL Lymph # (Auto) 2400 (8680-9609) /uL Dickenson # (Auto) 800 (0-900) /uL Eos # (Auto) 400 (0-450) /uL Baso # (Auto) 100 (0-100) /uL Sodium 139 (137-145) mmol/L Potassium 4.3 (3.4-5.1) mmol/L Chloride 110 H (98-107) mmol/L Carbon Dioxide 23 (22-32) mmol/L BUN 12 (9-20) mg/dL Creatinine 0.87 (0.66-1.25) mg/dL Estimated GFR > 60 (>60) mL/min BUN/Creatinine Ratio 13.8 (6-22) Glucose 103 H (70-100) mg/dL Calcium 8.6 (8.4-10.2) mg/dL Total Bilirubin 1.2 (0.2-1.3) mg/dL AST 44 (17-59) IU/L ALT 68 H (<50) IU/L Alkaline Phosphatase 66 (38-126) U/L Total Protein 7.8 (6.3-8.2) g/dL Albumin 4.5 (3.5-5.0) g/dL Globulin 3.3 (1.7-4.1) g/dL Albumin/Globulin Ratio 1.4 (1.0-2.8) Lipase 68 (23-300) U/L Point of care testing: Urine Dip Bedside Urine Glucose Negative Bedside Urine Bilirubin - Negative Bedside Urine Ketone - Negative Urine Specific [place] 1.030 Bedside Urine Occult Blood - Negative Bedside Urine pH 6.0 Bedside Urine Protein - Negative Bedside Urine Urobilinogen - Negative Bedside Urine Nitrite - Negative Bedside Urine Leukocytes - Negative Esterase MDM Narrative Medical decision making narrative: 48-year-old male with upper abdominal pain, epigastric area tenderness, not particularly tender right upper quadrant or in left upper quadrant, no ventral hernias obvious, afebrile, sirs screen negative. White blood cell count not elevated, hemoglobin normal, LFTs essentially unremarkable, lipase normal, urine dip negative. CT abdomen and pelvis with IV contrast ordered. IV pepcid. CT abdomen pelvis. Impressions: ?No acute abnormality identified. Small left renal cyst and small cyst or hamartoma of the right lobe of the liver.? See teleradiology report CT report discussed with patient, report handed to patient, with discussion of liver and renal cystic lesions that need further follow up as an outpatient as well. No acute changes. Consider outpatient gallbladder ultrasound, consider outpatient upper endoscopy. Patient says that he is going through transition of insurance, not have a primary care provider to make outpatient referrals and follow up at this time, would prefer to stay for ultrasound component of follow up workup for now. Ultrasound right upper quadrant abdomen ordered. vp information technology verbal report, she feels that study was limited by overlying bowel gas, however there was some small amount of gallbladder sludge, no obvious gallbladder wall thickening, nor any obvious pericholecystic fluid Verbal report relayed to the patient, consider general surgery follow up of for surgical options removal of gallbladder as an outpatient, versus upper endoscopy, or some other approach for further workup of his abdominal pain. Patient was also given abdominal CT scan report, with discussion of incidental findings renal cyst on the left, and liver lesion that appears benign. Discharged home with family Critical Care Time Critical Care Time Critical Care Time: Yes Total Critical Care Time: 35 Attestation: The high probability of a clinically significant, sudden or life threatening deterioration of the [gastrointestinal, abdominopelvic] system(s) required my full and direct attention, intervention and personal management. The aggregate critical care time was [35] minutes. This time is in addition to time spent performing reported procedures but includes the following: [x] Data Review and interpretation [x] Patient assessment and monitoring of vital signs [x] Documentation [x] Medication orders and management Discharge Plan Departure Patient Disposition: Home Clinical Impression: Abdominal pain, Renal cyst, Liver cyst, Gallstone Activity Restrictions/Additional Instructions: Upper abdominal pain of unclear etiology. CT scan abdomen pelvis imaging showed no acute process. Incidental finding noted of small left kidney cystic structure, not obviously a cause of acute pain. Incidental finding also of a small cystic or hamartoma like benign appearing lesion in the liver also noted. Incidental findings will need further follow up as an outpatient, but neither appears to be an obvious cause of your discomfort. Ultrasound gallbladder showed some gallbladder sludge, but not obvious for acute inflamed condition of the gallbladder at this time, consider general surgery consultation in follow up for elective gallbladder surgical removal options. Consider acid related problems that do not show up on CT/ultrasound imaging, such as gastritis inflammation of the stomach, gastroesophageal reflux of the lower esophagus, and even peptic ulcers of the stomach or the duodenum. Trial of omeprazole [id number] antacid for now. Consider outpatient upper endoscopy. Contact information provided for local general surgeon on-call, though you might be required to have a referral from your primary care provider from your insurance. Return earlier to this/nearest emergency department for any change worsening symptoms or any concerns prior Prescriptions: New omeprazole 20 mg capsule,delayed release(DR/EC) 20 mg PO DAILY 30 Days Qty: 30 0RF No Action sildenafil PO tadalafil [Cialis] 5 mg tablet 5 mg PO DAILY Qty: 90 3RF Referrals: Lawson Yoder MD [Physician] - Elyse Alba ND [Primary Care Provider] - Stand Alone Forms: Patient Portal/API
[2024-05-07 04:38] LABS: Add Manual Diff / Slide Review NO; Basophils Absolute Auto 100 /uL (0-100); Basophils Percent Auto 0.9 % (0-2); Eosinophils Absolute Auto 400 /uL (0-450); Hematocrit 43.9 % (41-53); Lymphocytes Absolute Auto 2400 /uL (1100-4500); Lymphocytes Percent Auto 40.2 % (25-40); Mean Corpuscular HGB Conc 34.2 % (30-36); Mean Corpuscular Hemoglobin 32.2 PG (26-34); Mean Corpuscular Volume 94.2 fL (80-100); Monocytes Absolute Auto 800 /uL (0-900); Monocytes Percent Auto 13.2 % (3-14); Neutrophils Absolute Auto 2400 /uL (1500-7000); Neutrophils Percent Auto 39.7 % (50-75); Platelet Count 217 X10^3/uL (150-400); Red Blood Cell Count 4.66 X10^6/uL (4.5-5.9); Red Cell Distribution Width 13.6 % (11.6-14.8)
[2024-05-07 04:53] LABS: Alanine Aminotransferase 68 IU/L (<50); Albumin 4.5 g/dL (3.5-5.0); Albumin Globulin Ratio 1.4 (1.0-2.8); Alkaline Phosphatase 66 U/L (38-126); Aspartate Aminotransferase 44 IU/L (17-59); BUN Creatinine Ratio 13.8 (6-22); Bilirubin Total 1.2 mg/dL (0.2-1.3); Blood Urea Nitrogen 12 mg/dL (9-20); Calcium 8.6 mg/dL (8.4-10.2); Carbon Dioxide 23 mmol/L (22-32); Chloride 110 mmol/L (98-107); Estimated Glomerular Filt Rate > 60 mL/min (>60); Globulin 3.3 g/dL (1.7-4.1); Glucose 103 mg/dL (70-100); HEMOLYSIS 19 (0-50); Lipase 68 U/L (23-300); Potassium 4.3 mmol/L (3.4-5.1); Sodium 139 mmol/L (137-145); Total Protein 7.8 g/dL (6.3-8.2)
--- NOTE | 2024-05-07 04:54 | DI.CT.S_ITS ---
PROCEDURE: CT ABDOMEN PELVIS W CON INDICATIONS: upper abd pain TECHNIQUE: After the administration of intravenous contrast, axial sections acquired from the lung bases to the pubic symphysis. Coronal and sagittal reformats were performed. For radiation dose reduction, the following was used: automated exposure control, adjustment of mA and/or kV according to patient size. COMPARISON: [facility], US, US ABDOMEN LIMITED, 05/07/2024, 6:42. [facility], CT, ABDOMEN/PELVIS WITH CONTRAST, 11/27/2017, 13:55. FINDINGS: Image quality: Diagnostic. Lower Chest: No significant findings. ABDOMEN: Liver: No solid mass. Liver is prominent measuring 19 cm with steatosis. Indeterminate 5 mm low-attenuation focus is present in the posterior right hepatic lobe, new since 2018. Low-attenuation focus more anteriorly is stable compared to prior exam. Both are likely marketing sales representative of simple cysts. Gallbladder: No radiopaque gallstones or wall thickening. Biliary ducts: No biliary dilation. Pancreas: No ductal dilation. Spleen: Size is within normal limits. Adrenal Glands: No adrenal nodules. Kidneys and Ureters: No hydronephrosis. No solid mass. No complex renal cystic lesion which requires follow up. Simple left renal cysts. Stomach and Bowel: Scattered mildly prominent fluid-filled loops of small bowel without definitive transition point. Greatest transverse dimension measures 2.8 cm. Colonic diverticular present without inflammatory change. Peritoneum: No abnormal intraperitoneal fluid. No free air. Ventral Wall: Trace fat containing ventral hernia. Abdominal Nodes: No retroperitoneal or mesenteric adenopathy by size criteria. Vessels: Aorta and inferior vena cava are normal in size. PELVIS: Pelvic Organs: Unremarkable. Bladder: No bladder wall thickening, accounting for underdistention. Pelvic Nodes: No enlarged lymph nodes. Miscellaneous: Bilateral fat containing inguinal hernias are seen. Bones: No aggressive osseous abnormality. IMPRESSION: Mild appearance of nonspecific of fluid-filled small bowel loops. This may represent ileus. Diverticulosis. The above findings are concordant with preliminary report. Dictated by: Klaudia Merchant M.D. on 05/07/2024 at 9:06 Approved by: Klaudia Merchant M.D. on 05/07/2024 at 9:09
--- NOTE | 2024-05-07 06:05 | DI.US.S_ITS ---
PROCEDURE: US ABDOMEN LIMITED INDICATIONS: upper abd pain, eval RUQ TECHNIQUE: Real-time scanning was performed of the abdominal and retroperitoneal organs, with image documentation. COMPARISON: None. FINDINGS: Liver: Increased liver echogenicity with posterior attenuation, most consistent with moderate to severe steatosis. Gallbladder: Gallbladder sludge without stones. No wall thickening. No pericholecystic edema. Negative sonographic Huddleston's sign. Biliary ducts: Intrahepatic bile ducts are non-dilated. Extrahepatic bile duct caliber measures 4 mm. Normal is 6-7 mm or less in diameter, or 10 mm or less post-cholecystectomy. Pancreas: Visualized portions of the pancreas are sonographically normal. Miscellaneous: No free abdominal fluid. IMPRESSION: Gallbladder sludge without evidence of acute cholecystitis. Moderate to severe hepatic steatosis. Agree with preliminary report. Dictated by: Ruben Moreland M.D. on 05/07/2024 at 8:17 Approved by: Ruben Moreland M.D. on 05/07/2024 at 8:18
[2024-05-07] MEDS: PANTOPRAZOLE 40 MG VIAL IV (06:26)
== END 2024-05-07 07:21 | disposition home or self-care (01) ==
PROVIDERS: Emergency Provider Emergency Medicine; PCP Naturopath
DX: R10.10 Upper abdominal pain, unspecified (principal); N28.1 Cyst of kidney, acquired; K76.89 Other specified diseases of liver; K80.20 Calculus of gallbladder without cholecystitis without obstruction
CPT/HCPCS: 36415; 74177; 76705; 80053; 81003; 83690; 85025; 96374; 99284; C9113; Q9967

== ENCOUNTER 2025-02-27 20:28 | Emergency (ER) | payer OTHER, SELFPAY ==
[2025-02-27] VITALS (7 sets, daily range): BP systolic 128–153; BP diastolic 80–97; PULSE 59–71; RESP 12–18; TEMP 36.6; O2SAT 94–97; BMI 30.2
--- NOTE | 2025-02-27 21:07 | DI.RAD.S_ITS ---
PROCEDURE: XR CHEST 1V INDICATIONS: Exertional dyspnea TECHNIQUE: One view of the chest was acquired. COMPARISON: [facility], CR, XR CHEST 1V, 06/27/2023, 22:36. FINDINGS: Surgical changes and devices: None. Lungs and pleura: Lungs are clear. No pleural effusions or pneumothorax. Mediastinum: Mediastinal contours appear normal. Heart size is normal. Bones and chest wall: No suspicious bony lesions. Overlying soft tissues appear unremarkable. IMPRESSION: No acute cardiopulmonary abnormality is seen. Dictated by: Jey Jacinto M.D. on 02/27/2025 at 21:29 Approved by: Jey Jacinto M.D. on 02/27/2025 at 21:29
--- NOTE | 2025-02-27 21:15 | EKG_ITS ---
[address] [address] Test Date: 2025-02-27 Pat Name: Jabier Jaramillo Department: [facility] Room: Gender: Male Traffic Control Officer: : 1975 Requested By: Order Number: [id number] Reading MD: Mukesh Davis MD Measurements Intervals [place] Rate: 64 P: 44 NC: 170 QRS: 11 QRSD: 106 T: 20 QT: 398 QTc: 410 Interpretive Statements Normal sinus rhythm Electronically Signed On 02-28-2025 8:25:27 PDT by Mukesh Davis MD
[2025-02-27 21:34] LABS: Add Manual Diff / Slide Review NO; Basophils Absolute Auto 200 /uL (0-100); Basophils Percent Auto 2.9 % (0-2); Eosinophils Absolute Auto 300 /uL (0-450); Hematocrit 45.7 % (41-53); Hemoglobin 15.8 g/dL (13.5-17.5); Lymphocytes Absolute Auto 1500 /uL (1100-4500); Lymphocytes Percent Auto 23.7 % (25-40); Mean Corpuscular HGB Conc 34.6 % (30-36); Mean Corpuscular Hemoglobin 32.4 PG (26-34); Mean Corpuscular Volume 93.6 fL (80-100); Monocytes Absolute Auto 300 /uL (0-900); Monocytes Percent Auto 4.2 % (3-14); Neutrophils Absolute Auto 4100 /uL (1500-7000); Neutrophils Percent Auto 64.2 % (50-75); Platelet Count 226 X10^3/uL (150-400); Red Blood Cell Count 4.88 X10^6/uL (4.5-5.9); Red Cell Distribution Width 13.2 % (11.6-14.8); White Blood Cell Count 6.3 X10^3/uL (4.5-11.0)
[2025-02-27 21:44] LABS: Alanine Aminotransferase 78 IU/L (<50); Albumin 4.5 g/dL (3.5-5.0); Albumin Globulin Ratio 1.3 (1.0-2.8); Alkaline Phosphatase 68 U/L (38-126); Aspartate Aminotransferase 57 IU/L (17-59); BUN Creatinine Ratio 17.2 (6-22); Blood Urea Nitrogen 15 mg/dL (9-20); Calcium 9.2 mg/dL (8.4-10.2); Carbon Dioxide 23 mmol/L (22-32); Chloride 105 mmol/L (98-107); Estimated Glomerular Filt Rate > 60 mL/min (>60); Globulin 3.4 g/dL (1.7-4.1); Glucose 106 mg/dL (70-100); Magnesium 1.9 mg/dL (1.6-2.3); Potassium 4.1 mmol/L (3.4-5.1); Sodium 137 mmol/L (137-145); Total Protein 7.9 g/dL (6.3-8.2)
[2025-02-27 21:53] LABS: HEMOLYSIS 69 (0-50)
[2025-02-27 21:56] LABS: NT-proBNP (BNP-Adult 18+) 27 pg/mL (<125); Troponin I 0.014 ng/mL (0.01-0.034)
--- NOTE | 2025-02-27 22:12 | PC.NURSE ---
Pt ambulatory to restroom without difficulty or assistance.
--- NOTE | 2025-02-27 22:31 | ED_ITS ---
HPI - Head Injury General Chief complaint: Head Injury Stated complaint: head injury, dizziness, headaches, HBP. Time Seen by Provider: 02/27/25 20:42 Source: patient Mode of arrival: Ambulatory History of Present Illness HPI Narrative: Otherwise healthy 49-year-old gentleman presents with complaints of headache, neck pain, fatigue, increased irritability all associated with head injury sustained at work on February 25. Heavy clamp fell landing on the left side of his head, causing small abrasion. Seen at [facility] urgent care time CT scan was done showed no intracranial hemorrhage and he was discharged home. In the interval he is noticing that he is also having exertional dyspnea. He had initially attributed this to the fact that he has been lying in bed more because of the postconcussion syndrome symptoms. He notes that over the last 4 days the exertional dyspnea has become more pronounced and causes chest pain over the entire upper portion of his chest. When asked if he had chest pain currently he said not right now however walking from his car into the emergency room did cause exertional dyspnea and did exacerbate his chest pain. He has never had similar symptoms. We discussed the head injury and postconcussion syndrome along with anticipated recovery, headaches, neck aches etcetera. It is unclear to me that this exertional dyspnea with chest pain that has been increasing in intensity and severity for the past 4 days as in any way related to the head injury or whether this is incidental. Discussed my concerns with the patient and his and we agreed on proceeding with a cardiac workup. Related Data Home Medications Medication Instructions Recorded Confirmed sildenafil PO 11/13/22 02/27/23 Previous Rx's Medication Instructions Recorded tadalafil 5 mg tablet 5 mg PO DAILY #90 tabs 07/24/24 Allergies Allergy/AdvReac Type Severity Reaction Status Date / Time No Known Drug Allergies Allergy Verified 02/27/23 10:19 Review of Systems Review of Systems Narrative: Pertinent positive and negative findings as per HPI Patient History Medical History Erectile dysfunction History of impotence Lower urinary tract symptoms (LUTS) Surgical History Hx of circumcision Family History Grandfather Cancer Hearing impairment Mother Diabetes mellitus Social History marital status: number of children: 1 alcohol intake: current caffeine: Yes Type(s) of exercise: independent ambulation and other frequency: daily alcohol intake frequency: 3 or more drinks per day Exam Initial Vital Signs Initial Vital Signs: Vital Signs Temperature 97.9 F 02/27/25 20:32 Pulse Rate 71 02/27/25 20:32 Respiratory Rate 16 02/27/25 20:32 Blood Pressure 153/96 H 02/27/25 20:32 Pulse Oximetry 97 02/27/25 20:32 Oxygen Delivery Method Room Air 02/27/25 20:32 General: Healthy appearing, in no acute distress. Able to give a complete and coherent history. Well-nourished well-developed HEENT: Moist mucous membranes, normal sclera with reactive pupils, he has a small less than half a cm in diameter size abrasion to the left crown of his head with no associated bony tenderness or hematoma Neck: Paraspinous muscle spasm into trapezius spasm bilaterally. No tenderness in the midline Respiratory: Lungs are clear to auscultation, no wheezing no rales no rhonchi. Full and symmetrical air movement Cardiac: Regular rate and rhythm no murmurs no bruits Abdomen: Soft, nontender, no rebound or guarding, no flank pain Skin: Warm and dry, no rashes Neurologic: Grossly neurologically intact with no obvious asymmetries or abnormalities Extremities: No trauma, well perfused Psych: Cooperative, appropriate insight and affect Course Orders Ordered: ED Orders 02/27/25 21:07 XR chest 1V Stat EKG-12 Lead Stat 02/27/25 21:25 Complete Blood Count AUTO DIFF Stat Comprehensive Metabolic Panel Stat D Dimer Stat Magnesium Stat NT-proBNP (BNP-Adult 18+) Stat Troponin I Stat 02/27/25 23:44 Troponin I Stat Vital Signs Vital signs: Vital Signs - 8 hr 02/27/25 20:32 02/27/25 21:31 02/27/25 22:00 Temperature 97.9 F Pulse Rate 71 68 62 Respiratory Rate 16 18 13 Blood Pressure 153/96 H 144/95 H Pulse Oximetry 97 95 97 Oxygen Delivery Method Room Air Room Air Room Air 02/27/25 22:00 02/27/25 22:15 02/27/25 22:15 Temperature Pulse Rate Respiratory Rate Blood Pressure 134/91 H 140/97 H Pulse Oximetry 96 Oxygen Delivery Method Room Air 02/27/25 22:30 02/27/25 22:30 Temperature Pulse Rate 59 L Respiratory Rate 12 Blood Pressure 128/80 Pulse Oximetry 96 Oxygen Delivery Method Room Air MDM - Head Injury Lab Data 02/27/25 21:25 02/27/25 21:25 Labs: Lab Results 02/27/25 02/27/25 Range/Units 21:25 23:25 WBC 6.3 (4.5-11.0) X10^3/uL RBC 4.88 (4.5-5.9) X10^6/uL Hgb 15.8 (13.5-17.5) g/dL Hct 45.7 (41-53) % MCV 93.6 (80-100) fL MCH 32.4 (26-34) PG MCHC 34.6 (30-36) % RDW 13.2 (11.6-14.8) % Plt Count 226 (150-400) X10^3/uL Neut % (Auto) 64.2 (50-75) % Lymph % (Auto) 23.7 L (25-40) % [place] % (Auto) 4.2 (3-14) % Eos % (Auto) 5.0 H (2-4) % Baso % (Auto) 2.9 H (0-2) % Neut # (Auto) 4100 (9033-3789) /uL Lymph # (Auto) 1500 (9631-3763) /uL [place] # (Auto) 300 (0-900) /uL Eos # (Auto) 300 (0-450) /uL Baso # (Auto) 200 H (0-100) /uL D-Dimer 381 (<500) ng/ml Sodium 137 (137-145) mmol/L Potassium 4.1 (3.4-5.1) mmol/L Chloride 105 (98-107) mmol/L Carbon Dioxide 23 (22-32) mmol/L BUN 15 (9-20) mg/dL Creatinine 0.87 (0.66-1.25) mg/dL Estimated GFR > 60 (>60) mL/min BUN/Creatinine Ratio 17.2 (6-22) Glucose 106 H (70-100) mg/dL Calcium 9.2 (8.4-10.2) mg/dL Magnesium 1.9 (1.6-2.3) mg/dL Total Bilirubin 1.0 (0.2-1.3) mg/dL AST 57 (17-59) IU/L ALT 78 H (<50) IU/L Alkaline Phosphatase 68 (38-126) U/L Troponin I 0.014 0.028 (0.01-0.034) ng/mL NT-Pro-B Natriuret Pep 27 (<125) pg/mL Total Protein 7.9 (6.3-8.2) g/dL Albumin 4.5 (3.5-5.0) g/dL Globulin 3.4 (1.7-4.1) g/dL Albumin/Globulin Ratio 1.3 (1.0-2.8) MDM Narrative Medical decision making narrative: CC: Initial complaints were of postconcussion syndrome however more concerning complaint was 4 days of increasing exertional dyspnea now with chest pain Complicating co-morbidities: Recent head injury, had a clamp that fell on his head at work on February 25 with workup at [facility] General Data collected from: patient Medical records reviewed: [facility] general report from [address] scan was unremarkable. Differential considered: Regarding the head complaint: Intracranial hemorrhage, skull fracture, acute neck strain, deeper puncture wound rather than simple abrasion, postconcussion syndrome Regarding the exertional dyspnea, unstable angina, respiratory illness, deconditioning, significant anemia Exam documented above, pertinent findings include: While in the exam room his exam is completely benign. Has a small abrasion on the top of his head from the work injury on the along with muscle spasm in the paraspinous and trapezius muscles bilaterally Lab Test results independently reviewed as above. Pertinent findings: CBC is unremarkable, no signs of anemia Chemistries are reassuring with normal renal function. Slightly elevated ALT at 78, it has been elevated in the past Initial troponin is undetectable at 0.014, repeat troponin is still within the normal range but has increased to 0 0.028 Initial BNP is undetectable D-dimer is low Independently reviewed EKG: Sinus rhythm at a rate of 64 with no acute ischemic changes Imaging studies independently reviewed: Chest x-ray is unremarkable Discussion: 49-year-old gentleman who comes in with complaints of headache but also notes over the last 4 days he has had increasing exertional dyspnea with chest pain. He has never had cardiac issues or high blood pressure. EKG is reassuring, 1st troponin is low 2nd troponin is high your but still within the normal range. The story for increasing dyspnea with decreasing activity and increasing chest pain is concerning for unstable angina. Discussed with cardiology who felt that risks were low enough that discharge home and outpatient follow up would be appropriate. Patient already has an appointment set up on the to see his primary care physician. Reviewed the postconcussion symptoms anticipated course of recovery, appropriateness of cognitive rest, he is given copies of all of his blood work and labs done in the emergency room today as well as copies of the records we received from [facility]. He understands reasons to return to the emergency department in his safe for discharge Discharge Plan Departure Patient Disposition: Home Clinical Impression: Exertional dyspnea, Post concussion syndrome, Acute strain of neck muscle Instructions: DI for Shortness of Breath, DI for Postconcussion Syndrome Activity Restrictions/Additional Instructions: Thank you for coming in today The headaches, fatigue, dizziness vision issues are all related to your recent concussion. You have postconcussion syndrome. The treatment for this is cognitive rest which is exactly what you have been doing. This will continue to improve You mentioned that you had been having more shortness of breath for the last couple of days and was beginning to be associated with chest pain. Because of this we did a complete cardiac workup in the emergency department that was actually quite reassuring. However, I do think that an outpatient stress test we will be appropriate to help you stratify your cardiac risk factors. I have given you copies of your ER note from [facility] with a CT scan of your head, and the entire cardiac workup including labs, x-rays and EKG from today. Please share all of this information with your primary care doctor when you see them on Saturday If you find that you are having new symptoms worsening shortness of breath or chest pain while you are simply at rest, you need to return to the emergency department Prescriptions: No Action tadalafil 5 mg tablet 5 mg PO DAILY Qty: 90 3RF sildenafil PO Referrals: Elyse Alba ND [Primary Care Provider] - Stand Alone Forms: Patient Portal/API/Survey
[2025-02-27 23:25] LABS: D Dimer 381 ng/ml (<500)
--- NOTE | 2025-02-27 23:27 | PC.NURSE ---
Repeat labs drawn from existing IV without difficulty
[2025-02-28] VITALS: BP 133/84; PULSE 74; RESP 14; O2SAT 94
[2025-02-28 00:10] LABS: Troponin I 0.028 ng/mL (0.01-0.034)
[2025-02-28 00:30] VITALS: PULSE 79; RESP 14; O2SAT 96
== END 2025-02-28 00:39 | disposition home or self-care (01) ==
PROVIDERS: Emergency Provider Emergency Medicine; PCP Naturopath
DX: G44.309 Post-traumatic headache, unspecified, not intractable (principal); S16.1XXA Strain of muscle, fascia and tendon at neck level, initial encounter; F07.81 Postconcussional syndrome; R06.00 Dyspnea, unspecified; W22.8XXA Striking against or struck by other objects, initial encounter; Y99.0 Civilian activity done for income or pay
CPT/HCPCS: 36415; 71045; 80053; 83735; 83880; 84484; 85025; 85379; 93005; 99283; 99284

== ENCOUNTER 2025-06-07 18:32 | Emergency (ER) | payer MEDICAID, OTHER, SELFPAY ==
[2025-06-07 18:39] VITALS: BP 138/83; PULSE 101; RESP 18; TEMP 36.9; O2SAT 94; BMI 30.8
[2025-06-08] VITALS (11 sets, daily range): BP systolic 112–146; BP diastolic 81–101; PULSE 69–86; RESP 16–18; O2SAT 93–97
--- NOTE | 2025-06-08 00:55 | ED.LOWEXIN ---
HPI - Extremity Injury (Lower) General Chief Complaint: Extremity Injury, Lower Stated Complaint: Rt leg pain,swelling,fell Time Seen by Provider: 06/08/25 00:18 Source: patient Mode of arrival: Ambulatory History of Present Illness HPI Narrative: 49-year-old male who does not take blood thinners, fell through floor boards 2:00 p.m. earlier today, with contusion to the right lateral thigh, two hours ago had significantly increased swelling to the right lateral aspect. No other injuries. He can feel his foot and move his knee and hip. Related Data Home Medications ?Medication ?Instructions ?Recorded ?Confirmed sildenafil PO 11/13/22 02/27/23 Previous Rx's ?Medication ?Instructions ?Recorded tadalafil 5 mg tablet 5 mg PO DAILY #90 tabs 07/24/24 hydrocodone 5 mg-acetaminophen 325 1 tab PO Q6H PRN pain #14 tabs 06/08/25 mg tablet tranexamic acid 650 mg tablet 1,950 mg (3 x 650 mg) PO DAILY 3 06/08/25 days #9 tabs Allergies Allergy/AdvReac Type Severity Reaction Status Date / Time No Known Drug Allergies Allergy Verified 06/07/25 18:40 Patient History Medical History Erectile dysfunction History of impotence Lower urinary tract symptoms (LUTS) Surgical History Hx of circumcision Family History Grandfather Cancer Hearing impairment Mother Diabetes mellitus Social History marital status: number of children: 1 Smoking Status: Never smoker alcohol intake: current caffeine: Yes Type(s) of exercise: independent ambulation and other frequency: daily Smoking Status: Never smoker alcohol intake frequency: 3 or more drinks per day Exam Narrative Exam Narrative: GENERAL: Well-developed patient, in mild distress. HEAD: Atraumatic. Normocephalic. EYES: Pupils equal round and reactive. Extraocular motions intact. No scleral icterus. No injection or drainage. ENT: Nose without bleeding, purulent drainage. Throat without erythema, tonsillar hypertrophy or exudate. Airway patent. NECK: Trachea midline. Non tender CARDIOVASCULAR: Regular rate and rhythm without murmurs, gallops, or rubs. RESPIRATORY: Clear to auscultation. Breath sounds equal bilaterally. No wheezes, rales, or rhonchi. GASTROINTESTINAL: Abdomen soft, non-tender, nondistended. EXTREMITIES: Right lateral hematoma proximally 20 x 10 cm, with small area central purple coloration, no obvious external bleeding. Good DP pulse. Knee nontender. Hip nontender. BACK: Nontender without deformity or crepitance. No flank tenderness. NEURO: AOx3. Motor functions grossly nonfocal. SKIN: No rash or erythema of visible areas Initial Vital Signs Initial Vital Signs: Vital Signs Temperature 98.5 F 06/07/25 18:39 Pulse Rate 101 H 06/07/25 18:39 Respiratory Rate 18 06/07/25 18:39 Blood Pressure 138/83 06/07/25 18:39 Pulse Oximetry 94 06/07/25 18:39 Oxygen Delivery Method Room Air 06/07/25 18:39 Course Orders Ordered: ED Orders 06/08/25 01:00 CT angio abd aorta runoff Stat XR femur RT min 2V Stat 06/08/25 01:18 CBC Auto Diff [Complete Blood Count AUTO DIFF] Stat CMP [Comprehensive Metabolic Panel] Stat Prothrombin Time INR Stat Discontinued Medications Hydrocodone Bitart/Acetaminophen (Hydrocodone/Acet 5/325 Tablet) 1 tab PO NOW ONE Stop: 06/08/25 03:00 Last Admin: 06/08/25 03:23 Dose: 1 tab Documented By: MAGUI Hydrocodone Bitart/Acetaminophen (Hydrocodone/Acet 5/325 Prepack) 1 bottle MISC DIRECTED ONE Stop: 06/08/25 03:01 Last Admin: 06/08/25 06:11 Dose: 1 bottle Documented By: MAGUI Hydromorphone HCl (Hydromorphone 1 Mg Inj) 1 mg IV NOW ONE Stop: 06/08/25 01:00 Last Admin: 06/08/25 01:12 Dose: 1 mg Documented By: GURU Hydromorphone HCl (Hydromorphone 1 Mg Inj) 1 mg IV NOW ONE Stop: 06/08/25 01:43 Last Admin: 06/08/25 02:08 Dose: 1 mg Documented By: MAGUI Sodium Chloride (Normal Saline 0.9%) 1,000 mls @ 1,000 mls/hr IV BOLUS ONE Stop: 06/08/25 01:58 Last Infusion: 06/08/25 02:37 Dose: Infused Documented By: Admin: 06/08/25 01:11 Dose: 1,000 mls/hr Documented By: GURU Tranexamic Acid 2,000 mg/ (Sodium Chloride) 100 mls @ 200 mls/hr IV NOW ONE Stop: 06/08/25 03:32 Last Infusion: 06/08/25 04:07 Dose: Infused Documented By: Admin: 06/08/25 03:23 Dose: 200 mls/hr Documented By: MAGUI Ondansetron HCl (Ondansetron 4 Mg/2 Ml Inj) 4 mg IV NOW ONE Stop: 06/08/25 01:00 Last Admin: 06/08/25 01:12 Dose: 4 mg Documented By: GURU Vital Signs Vital signs: Vital Signs - 8 hr 06/08/25 01:18 06/08/25 01:18 06/08/25 02:12 Pulse Rate 81 82 Respiratory Rate 18 16 Blood Pressure 132/92 H Pulse Oximetry 95 93 Oxygen Delivery Method Room Air Room Air 06/08/25 02:12 06/08/25 02:30 06/08/25 02:30 Pulse Rate 85 Respiratory Rate Blood Pressure 133/94 H 128/84 Pulse Oximetry 95 Oxygen Delivery Method 06/08/25 03:00 06/08/25 03:01 06/08/25 03:01 Pulse Rate 86 86 Respiratory Rate Blood Pressure 146/94 H Pulse Oximetry 97 97 Oxygen Delivery Method 06/08/25 03:30 06/08/25 03:30 06/08/25 04:00 Pulse Rate 75 Respiratory Rate Blood Pressure 132/93 H 136/101 H Pulse Oximetry 95 Oxygen Delivery Method 06/08/25 04:00 06/08/25 04:30 06/08/25 04:30 Pulse Rate 77 82 Respiratory Rate Blood Pressure 125/88 Pulse Oximetry 96 96 Oxygen Delivery Method 06/08/25 05:00 06/08/25 05:00 06/08/25 05:30 Pulse Rate 76 69 Respiratory Rate Blood Pressure 128/88 Pulse Oximetry 96 95 Oxygen Delivery Method 06/08/25 05:30 06/08/25 06:00 06/08/25 06:00 Pulse Rate 73 Respiratory Rate 16 Blood Pressure 112/81 138/91 H Pulse Oximetry 97 Oxygen Delivery Method Room Air MDM - Extremity Injury (Lower) Lab Data Attestation: I reviewed the patient's lab results. Lab results narrative: White blood cell count 7700, hemoglobin 16, platelets adequate. Basic metabolic panel unremarkable. ALT slight elevation, otherwise liver functions normal. INR 0.9 normal. 06/08/25 01:18 06/08/25 01:18 Labs: Lab Results 06/08/25 Range/Units 01:18 WBC 7.7 (4.5-11.0) X10^3/uL RBC 4.96 (4.5-5.9) X10^6/uL Hgb 16.0 (13.5-17.5) g/dL Hct 45.8 (41-53) % MCV 92.4 (80-100) fL MCH 32.4 (26-34) PG MCHC 35.0 (30-36) % RDW 13.1 (11.6-14.8) % Plt Count 234 (150-400) X10^3/uL Neut % (Auto) 50.8 (50-75) % Lymph % (Auto) 32.9 (25-40) % [place] % (Auto) 9.8 (3-14) % Eos % (Auto) 3.9 (2-4) % Baso % (Auto) 2.6 H (0-2) % Neut # (Auto) 3900 (9249-6195) /uL Lymph # (Auto) 2500 (4371-0834) /uL [place] # (Auto) 800 (0-900) /uL Eos # (Auto) 300 (0-450) /uL Baso # (Auto) 200 H (0-100) /uL PT 10.3 (9.4-12.5) SECONDS INR 0.9 (0.9-1.3) Sodium 140 (137-145) mmol/L Potassium 4.2 (3.4-5.1) mmol/L Chloride 108 H (98-107) mmol/L Carbon Dioxide 22 (22-32) mmol/L BUN 15 (9-20) mg/dL Creatinine 0.99 (0.66-1.25) mg/dL Estimated GFR > 60 (>60) mL/min BUN/Creatinine Ratio 15.2 (6-22) Glucose 106 H (70-99) mg/dL Calcium 9.2 (8.4-10.2) mg/dL Total Bilirubin 1.1 (0.2-1.3) mg/dL AST 57 (17-59) IU/L ALT 98 H (<50) IU/L Alkaline Phosphatase 95 (38-126) U/L Total Protein 8.6 H (6.3-8.2) g/dL Albumin 4.7 (3.5-5.0) g/dL Globulin 3.9 (1.7-4.1) g/dL Albumin/Globulin Ratio 1.2 (1.0-2.8) Imaging Data Extremity x-ray #1: Radiologist's Impression: [address] [address] XRay Report Signed Patient: Jabier Jaramillo MR#: [id number] : 1975 Acct:[id number] Age/Sex: 49 / M Date of Service: 06/08/25 Loc: ED Accession Number: [id number] Procedure: XR femur RT min 2V Ordering Provider: Tobias Longo MD PROCEDURE: XR FEMUR RT MIN 2V INDICATIONS: fell, swelling TECHNIQUE: 3 views of the femur were acquired. COMPARISON: None. FINDINGS: Bones: No fractures or dislocations. No suspicious bony lesions. Soft tissues: No suspicious soft tissue calcifications or masses. IMPRESSION: No visualized acute fracture or dislocation. However, if clinical concern and/or pain persist, short interval imaging followup in 7-10 days is recommended, as occult injury cannot be definitively excluded. Dictated by: Klaudia Merchant M.D. on 06/08/2025 at 1:59 Approved by: Klaudia Merchant M.D. on 06/08/2025 at 2:00 [facility] Narrative Medical decision making narrative: 49-year-old male with your each of right thigh, having slid down through some floor boards earlier this afternoon, initial contusion, none last couple of hours having expanding lateral swelling and increasing pain. No external hemorrhage. No blood thinner medications taken. X-ray right femur pending. Labs sent. Consider angiography to look for active blush. Distal pulse excellent, good cap refill toes. Keep NPO. IV Dilaudid. Lab data: White blood cell count 7700, hemoglobin 16, platelets adequate. Basic metabolic panel unremarkable. ALT slight elevation, otherwise liver functions normal. INR 0.9 normal. Renal function adequate. CTA right lower extremity ordered. Still having pain. Repeat IV Dilaudid dose. CT angio right lower extremity. Impressions: ?patent systemic arterial system with no hemodynamically significant stenosis. There is a tiny focus of active extravasation within a small right lateral thigh hematoma related to skin branch vessel. This would likely responded direct progression.? See tele radiology report. 0245, case discussed with Orthopedic surgery Dr. Groves who advises further observation here in the emergency department. Agrees with ice pack and Rodrigo wrap for now. You can see patient later today in clinic if needed. We will further observe in the emergency department for now. Orthopedics texted back, consider TXA 2 g IV, ordered. And oral TXA 1950mg daily x3d. 0600, thigh pain not iIncreasing, crutches for non weightbearing. Homepack hydrocodone/APAP. Oral TXA Rx sent to pharmacy. DC home. FU this afternoon with orthopedics. Return precautions, compartment syndrome precautions. Discharge Plan Departure Patient Disposition: Home Clinical Impression: Hematoma, Pain in right thigh Activity Restrictions/Additional Instructions: Injury sliding through floor boards, then later/subsequent increasing lateral thigh pain. On clinical exam suspected hematoma. X-ray right femur bone without obvious fracture. CT angiogram study of the thigh region showed small blush suggestive of ongoing bleeding of a small peripheral arterial near the surface, that she would be amenable to local compression. Cold pack with Rodrigo wrap compression initiated. IV TXA infusion recommended by Orthopedic surgery to help stem bleeding. Hematoma changes on CT scan. Rodrigo wrap and elevation with ice application advised later today at home. Follow up with Dr. Groves of orthopedic surgery. He has clinic information provided. Avoid blood thinner medication such as aspirin for now. Home pack of hydrocodone/acetaminophen provided to help with pain control, to use if needed. Dr. Groves also suggested oral TXA and dose of 1950 mg daily (650 mg tablet, taking 3 tablets as a single dose) for 3 days, to help further bleeding as well. Prescription for oral therapy also sent to your pharmacy. Prescriptions: New tranexamic acid 650 mg tablet 1,950 mg PO DAILY 3 Days Qty: 9 0RF hydrocodone-acetaminophen 5-325 mg tablet 1 tab PO Q6H PRN (Reason: pain) Qty: 14 0RF No Action tadalafil 5 mg tablet 5 mg PO DAILY Qty: 90 3RF sildenafil PO Referrals: Maik Groves MD [Physician, Orthopedic Surgery] Elyse Alba ND [Primary Care Provider, Naturopathy] Stand Alone Forms: Patient Portal/API
--- NOTE | 2025-06-08 01:00 | DI.CT.S_ITS ---
PROCEDURE: CT ANGIO ABD AORTA RUNOFF INDICATIONS: pain/swelling, eval for active bleed/blush TECHNIQUE: After the administration of intravenous contrast, 2.5 mm sections acquired from T12 to the feet, with optional delayed image acquisition from the knees to the feet. 3-dimensional maximum intensity projection (MIP) coronal and sagittal reformats, and/or 3-dimensional volume rendering reformatting was then performed. For radiation dose reduction, the following was used: automated exposure control. COMPARISON: None. FINDINGS: Image quality: Diagnostic Solid organs are mostly not within the field of view Vessels and lymph nodes: No infrarenal abdominal aortic aneurysm. Minimal atherosclerotic calcifications are seen. The iliac vessels are widely patent. No enlarged lymph nodes in the visualized anatomy, by size criteria Bowel and peritoneum: Nondilated appendix. No small bowel obstruction or lower abdomen. No drainable abscess or ascites Body wall: Small fat containing inguinal hernias Small fat containing umbilical hernia Pelvis: Bladder is unremarkable. Prostate is unremarkable on limited CT evaluation Right lower extremity: The thigh, knee, and calf arteries are widely patent. Three-vessel runoff is seen at the level of the ankle joint. Right lateral thigh hematoma measures up to 7.7 x 3.5 cm. Tiny focus of extravasation is seen within the center. Surrounding edematous fat stranding is present. No displaced fracture. Left lower extremity: The thigh, knee, and calf arteries appear patent. Three- vessel runoff is seen at the level of the ankle joint. No acute displaced fracture or dislocation. Bones: Mild lumbosacral degenerative changes. No aggressive appearing osseous abnormality. IMPRESSION: Widely patent lower aorta and iliac arteries. No significant stenosis or occlusion in the lower extremities. Three-vessel runoff is seen at the ankle bilaterally. Right lateral thigh hematoma. Tiny focus of extravasation is seen within the center of the hematoma. No significant changes from the preliminary report. Dictated by: Nik Smalls M.D. on 06/08/2025 at 8:20 Approved by: Nik Smalls M.D. on 06/08/2025 at 8:26
--- NOTE | 2025-06-08 01:00 | DI.RAD.S_ITS ---
PROCEDURE: XR FEMUR RT MIN 2V INDICATIONS: fell, swelling TECHNIQUE: 3 views of the femur were acquired. COMPARISON: None. FINDINGS: Bones: No fractures or dislocations. No suspicious bony lesions. Soft tissues: No suspicious soft tissue calcifications or masses. IMPRESSION: No visualized acute fracture or dislocation. However, if clinical concern and/or pain persist, short interval imaging followup in 7-10 days is recommended, as occult injury cannot be definitively excluded. Dictated by: Klaudia Merchant M.D. on 06/08/2025 at 1:59 Approved by: Klaudia Merchant M.D. on 06/08/2025 at 2:00
[2025-06-08] MEDS: SODIUM CHLORIDE 0.9% 1,000 ML 1000 ML IV (01:11)
[2025-06-08] MEDS: ONDANSETRON 4 MG/2 ML INJ IV (01:12)
[2025-06-08] MEDS: HYDROMORPHONE 1 MG INJ IV ×2 (01:12→02:08)
[2025-06-08 01:23] LABS: Add Manual Diff / Slide Review NO; Hematocrit 45.8 % (41-53); Hemoglobin 16.0 g/dL (13.5-17.5); Lymphocytes Absolute Auto 2500 /uL (1100-4500); Mean Corpuscular HGB Conc 35.0 % (30-36); Mean Corpuscular Hemoglobin 32.4 PG (26-34); Mean Corpuscular Volume 92.4 fL (80-100); Platelet Count 234 X10^3/uL (150-400)
[2025-06-08 01:31] LABS: INR 0.9 (0.9-1.3); Prothrombin Time 10.3 SECONDS (9.4-12.5)
[2025-06-08 02:05] LABS: Alanine Aminotransferase 98 IU/L (<50); Albumin 4.7 g/dL (3.5-5.0); Albumin Globulin Ratio 1.2 (1.0-2.8); Alkaline Phosphatase 95 U/L (38-126); Blood Urea Nitrogen 15 mg/dL (9-20); Calcium 9.2 mg/dL (8.4-10.2); Carbon Dioxide 22 mmol/L (22-32); Chloride 108 mmol/L (98-107); Estimated Glomerular Filt Rate > 60 mL/min (>60); Globulin 3.9 g/dL (1.7-4.1); Glucose 106 mg/dL (70-99); HEMOLYSIS 19 (0-50); Potassium 4.2 mmol/L (3.4-5.1); Sodium 140 mmol/L (137-145); Total Protein 8.6 g/dL (6.3-8.2)
[2025-06-08] MEDS: TRANEXAMIC ACID 2,000 MG in SODIUM CHLORIDE 0.9% 100 ML 200 MG IV (03:23)
[2025-06-08] MEDS: HYDROCODONE/ACET 5/325 TABLET 1 TAB PO (03:23)
[2025-06-08] MEDS: HYDROCODONE/ACET 5/325 PREPACK 1 BOTTLE MISC (06:11)
== END 2025-06-08 07:24 | disposition home or self-care (01) ==
PROVIDERS: Emergency Medicine; Emergency Provider Emergency Medicine; PCP Naturopath
DX: S70.11XA Contusion of right thigh, initial encounter (principal); R60.0 Localized edema; W19.XXXA Unspecified fall, initial encounter
CPT/HCPCS: 36415; 73552; 75635; 80053; 85025; 85610; 96361; 96365; 96375; 96376; 99284; J1171; J2405; Q9967

== ENCOUNTER → 2025-08-09 12:01 | Outpatient (CLI) | payer OTHER, SELFPAY ==
--- NOTE | 2025-08-09 12:03 | DI.RAD.S_ITS ---
PROCEDURE: XR FOOT RT MIN 3V INDICATIONS: RIGHT FOOT PAIN TECHNIQUE: 3 views of the foot were acquired. COMPARISON: None. FINDINGS: Bones: No fractures or dislocations. Mild osteoarthritic changes are noted throughout right foot joints. No suspicious bony lesions. Soft tissues: No tibiotalar joint effusion. Achilles tendon appears normal. IMPRESSION: No right foot fracture or dislocation. No gross soft tissue abnormalities. Mild right foot joint osteoarthritis. Dictated by: Pramod Allen M.D. on 08/09/2025 at 16:20 Approved by: Pramod Allen M.D. on 08/09/2025 at 16:22
== END ==
PROVIDERS: PCP Naturopath; Referring Provider Naturopath; Visit Provider Naturopath
DX: M79.671 Pain in right foot (principal); M19.071 Primary osteoarthritis, right ankle and foot
CPT/HCPCS: 73630